=== PATIENT | male | born 1995 | race Caucasian/White ===

== ENCOUNTER 2025-06-07 10:42 | Emergency (ER) | payer OTHER, SELFPAY ==
[2025-06-07 10:59] VITALS: BP 128/88; PULSE 89; RESP 16; TEMP 36.9; O2SAT 98
--- NOTE | 2025-06-07 11:07 | ED_ITS ---
HPI - URI/Sore Throat General Chief Complaint: Upper Respiratory Infection Stated Complaint: cold symptoms Time Seen by Provider: 06/07/25 11:07 Source: patient Mode of arrival: ambulatory Limitations: no limitations History of Present Illness HPI Narrative: 29 yo M presents with c/o congestion, sinus pressure, sore throat, fatigue for 3 days. Denies N/v/d. No CP or SOB. All systems reviewed and negative except as noted above. Related Data Allergies Allergy/AdvReac Type Severity Reaction Status Date / Time No Known Allergies Allergy Verified 06/07/25 11:16 PMFSH Comments At time of signature, agree with nursing past medical, surgical, social and family history. There is no relevant family history pertinent to the presenting complaint. Exam Narrative: GENERAL: This is a well-nourished, well-developed patient, in no apparent distress. HEAD: normocephalic, atraumatic. EYES: PERRL. Sclera clear/white. Vision is grossly intact. EARS: External ears normal, auditory canals clear and without drainage, TMs normal without perforation. Hearing grossly intact. NOSE: External nose normal with clear nasal drainage THROAT: Mucous membranes moist, mild erythema. no significant swelling or exudates NECK: Neck supple, non-tender without lymphadenopathy, masses or thyromegaly. CARDIOVASCULAR: Regular rate and rhythm without murmurs, gallops, or rubs. RESPIRATORY: Clear to auscultation. Breath sounds equal bilaterally. No wheezes, rales, or rhonchi. SKIN: warm, Dry, intact with no suspicious lesions or rash, good texture and turgor. NEURO: awake, alert, and oriented to person, place and time. There were no obvious focal neurologic abnormalities. EXTREMITIES: No joint tenderness, effusion, or edema noted. Course Course Level of Care: Express Care Visit Vital Signs Vital signs: Vital Signs Temperature 36.9 C 06/07/25 10:59 Pulse Rate 89 06/07/25 10:59 Respiratory Rate 16 06/07/25 10:59 Blood Pressure 128/88 06/07/25 10:59 Pulse Oximetry 98 06/07/25 10:59 Temperature 36.9 C 06/07/25 10:59 Pulse Rate 89 06/07/25 10:59 Respiratory Rate 16 06/07/25 10:59 Blood Pressure 128/88 06/07/25 10:59 Pulse Oximetry 98 06/07/25 10:59 reviewed MDM MDM Narrative Medical decision making narrative: neg covid, flu, strep. strep culture pending. pt well appearing. Recommend OTC meds to treat symptoms. Differential Diagnosis Differential Diagnosis: Differential diagnostic considerations for upper respiratory infection include upper respiratory infection, croup, otitis media, sinusitis, viral infection, bronchitis, influenza, pharyngitis, strep, uvulitis.? Lab Data Labs: Lab Results 06/07/25 06/07/25 06/07/25 Range/Units 11:07 11:07 11:12 POC Influenza A Ag Negative (Negative) POC Influenza B Ag Negative (Negative) POC SARS CoV-2 Ag Negative (Negative) POC Grp A Strep Screen Negative Negative (Negative) Discharge Plan Discharge Clinical Impression: Viral upper respiratory tract infection with cough Patient Disposition: Home Condition: Stable Instructions: Upper Respiratory Infection (ED) Additional Instructions: your COVID, influenza and strep test were negative today. Your symptoms are viral and may last 10-14 days. Take medications as prescribed. Purchase [id number] pseudoephedrine and take as directed on packaging. This medication is found by the pharmacist. Drink at least 64 oz water a day. See your doctor if symptoms are not improving. Patient Language: Indonesian Prescriptions: New benzonatate 200 mg capsule 200 mg PO TID PRN (Reason: cough) Qty: 20 0RF fluticasone propionate [Flonase Allergy Relief] 50 mcg/actuation spray,suspension 1 spray intranasal BID Qty: 16 0RF Rx Instructions: administer into each nostril Follow-up/Referrals: PHYSICIAN,STENCIL PRINTER [Primary Care Provider, Internal Medicine] Stand Alone Forms: Work/School Release IP Time of Disposition: 11:15
[2025-06-07 11:09] LABS: EDSTREPNEGPOS1 Negative (Negative)
[2025-06-07 11:10] LABS: EDSTREPNEGPOS1 Negative (Negative)
[2025-06-07 11:14] LABS: EDCOVIDSCREEN Negative (Negative); EDINFLUASCREEN Negative (Negative); EDINFLUBSCREEN Negative (Negative)
== END 2025-06-07 11:22 | disposition home or self-care (01) ==
PROVIDERS: Emergency Provider Nurse Practitioner Family
DX: J06.9 Acute upper respiratory infection, unspecified (principal); B34.9 Viral infection, unspecified; Z20.822 Contact with and (suspected) exposure to COVID-19
CPT/HCPCS: 87081; 87426; 87804; 87880; 99203; G0463